=== PATIENT | male | born 2000 | race Two or more races ===

== ENCOUNTER 2020-10-26 05:30 | Emergency (ER) | payer OTHER ==
[~2020-10-26] VITALS: Ht 175.3 cm; Wt 74.8 kg
[2020-10-26] MEDS ORDERED: ACETAMINOPHEN 325 MG TAB PO ONE (08:00)
[2020-10-26 08:35] VITALS: BP 135/78
== END 2020-10-26 08:40 | disposition home or self-care (01) ==
LOC: EDBD 05:30 → ER 05:30
DX: S46.812A Strain of other muscles, fascia and tendons at shoulder and upper arm level, left arm, initial encounter (principal); S20.212A Contusion of left front wall of thorax, initial encounter; E11.9 Type 2 diabetes mellitus without complications; V49.49XA Driver injured in collision with other motor vehicles in traffic accident, initial encounter; Y93.89 Activity, other specified; Y92.488 Other paved roadways as the place of occurrence of the external cause; Y99.8 Other external cause status
CPT/HCPCS: 71101; 73030